=== PATIENT | female | born 1955 | race Caucasian/White ===

== ENCOUNTER 2016-09-06 10:02 | Emergency (ER) | payer OTHER ==
[~2016-09-06] VITALS: Ht 157.5 cm; Wt 7.3 kg
[~2016-09-06 10:02] MED LIST: WARF2 PO
[2016-09-06] MEDS ORDERED: LEVO50 PO (10:09)
[2016-09-06] MEDS ORDERED: IBUP-2070 PO (10:09)
[2016-09-06] MEDS ORDERED: HYDR-3965 PO (10:09)
[2016-09-06] MEDS ORDERED: METF500T4 PO (10:09)
[2016-09-06] MEDS ORDERED: ASPI-1093 PO (10:09)
[2016-09-06] MEDS ORDERED: CALC1TAB90 (10:09)
[2016-09-06] MEDS ORDERED: SIMV-260 PO (10:09)
[2016-09-06] MEDS ORDERED: AMOX500C2 PO (10:09)
[2016-09-06] MEDS ORDERED: SULF-168 PO (10:09)
[2016-09-06 10:24] VITALS: BP 155/76
== END 2016-09-06 11:59 | disposition home or self-care (01) ==
LOC: EMS 10:03
DX: J32.9 Chronic sinusitis, unspecified (principal); I10 Essential (primary) hypertension; E11.9 Type 2 diabetes mellitus without complications; E78.00 Pure hypercholesterolemia, unspecified; E03.9 Hypothyroidism, unspecified
CPT/HCPCS: 99283